=== PATIENT | female | born 1965 | race Hispanic/Latino ===

== ENCOUNTER 2017-01-05 22:12 | Emergency (ER) | payer SELFPAY ==
[2017-01-05 22:52] LABS: Bilirubin Negative (Negative); Blood, Urine Negative (Negative); Glucose, Urine (Dipstick) Negative (Negative); Ketone, Urine Negative (Negative); Nitrite Negative (Negative); Protein, Urine (Dipstick) Negative (Neg-Trace); Urobilinogen 0.2 mg/dL (0.2-1.0)
[2017-01-05 22:56] LABS: Bacteria/HPF None Seen HPF (None Seen); Hyaline Casts/LPF 7-10 HYALINE CAST LPF (0-3 Hyaline); WBC/HPF 0-3 HPF (0-3)
[2017-01-05 23:10] LABS: #Basophils 0.1 thou/uL (0.0-0.2); #Eosinphils 0.3 thou/uL (0.0-0.7); #Monocytes 0.7 thou/uL (0.11-0.59); #Neutrophils 5.1 thou/uL (1.40-6.50); %Basophils 0.7 % (0.0-1.0); %Eosinophils 3.4 % (0.0-10.0); %Lymphocytes 24.7 % (21.0-51.0); %Monocytes 8.7 % (0.0-10.0); Hematocrit 31.1 % (36.0-47.0); Mean Platelet Volume 6.6 fL (7.4-10.4); White Blood Cell (WBC) Count 8.1 thou/uL (4.8-10.8)
[2017-01-05 23:30] LABS: ALT (SGPT) 28 U/L (8-55); AST (SGOT) 23 U/L (5-34); Alkaline Phosphatase 82 U/L (40-150); Anion Gap 11 mmol/L (10-20); BUN (Urea Nitrogen) 13 mg/dL (9.8-20.1); Bilirubin, Total 0.2 mg/dL (0.2-1.2); Calc. Creatinine Clearance 0 mL/min (70-130); Calcium 8.7 mg/dL (7.8-10.44); Carbon Dioxide 23 mmol/L (22-29); Chloride 108 mmol/L (98-107); Estimated GFR-MDRD 89; Globulin 3.2 g/dL (2.4-3.5); Protein, Total 7.1 g/dL (6.0-8.3)
[2017-01-06] MEDS ORDERED: Mag-Al 1200 mg/1200 mg/30 ML UDCUP ONE (01:34)
[2017-01-06] MEDS ORDERED: Lidocaine Viscous Sol 2% 15 ml UD Cup ONE (01:34)
[2017-01-06] MEDS ORDERED: Famotidine/PF 20 mg/2ml Vial ONE (01:36)
--- NOTE | 2017-01-06 08:25 | CT ---
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 Pt states pain is worse with deep breaths. Denies blood in stool. Reports dark stool but pt takes iron pill. Pt report s loose stools and pain with bms. Also reports nausea with pain. Surgical HX cholecystectomy. TECHNIQUE: Axial computed tomography images of the abdomen and pelvis with intravenous contrast. Coronal reformatted images were created and reviewed. CONTRAST: 95 mL of ISOVUE 370 administered intravenously. COMPARISON: No relevant prior studies available. FINDINGS: Lower thorax: Large hiatal hernia. ABDOMEN: Liver: Unremarkable. No mass. Gallbladder and bile ducts: Prior cholecystectomy. No ductal dilation. Pancreas: Unremarkable. No mass. No ductal dilation. Spleen: Unremarkable. No splenomegaly. Adrenals: Unremarkable. No mass. Kidneys and ureters: Unremarkable. No solid mass. No hydronephrosis. Stomach and bowel: Unremarkable. No obstruction. No mucosal thickening. Appendix: Normal appendix. PELVIS: Bladder: Unremarkable. No mass. Reproductive: 18 cm left adnexal mass may be a fibroid arising from the uterus or may be arising fro m the left ovary. 4 cm left ovarian cyst. ABDOMEN and PELVIS: Intraperitoneal space: Unremarkable. No free air. No significant fluid collection. Bones/joints: Suggestion of avascular necrosis of the left femoral head without collapse. No acute f racture. No dislocation. Soft tissues: Left inguinal hernia containing fat only. Vasculature: Unremarkable. No abdominal aortic aneurysm. Lymph nodes: Unremarkable. No enlarged lymph nodes. IMPRESSION: 1. 18 cm left adnexal mass may be a fibroid arising from the uterus or may be arising from the left ovary. Ultrasound may not be helpful due to the size of the lesion. Consider MRI. Recommend gynecolo gy referral. 2. 4 cm left ovarian cyst. 3. Large hiatal hernia. 4. Suggestion of avascular necrosis of the left femoral head without collapse. Thank you for allowing us to participate in the care of your patient. Dictated and Authenticated by: Daryl Hunter MD 01/06/2017 2:40 AM Central Time ([place] \T\ [place]) FINAL REPORT CT ABDOMEN AND PELVIS WITH CONTRAST: Date: 01-06-17 Comparison: 04-21-11 History: Abdominal pain, left upper quadrant pain. FINDINGS: I agree with the preliminary [facility] report. There is a large hiatal hernia, probably increased in size since the prior exam. Imaged lung bases are unremarkable. No free intraperitoneal air. Cholecystectomy clips are present. The liver, spleen, pancreas, and adrenal glands are unremarkable. There is a small new hypodensity emanating from the upper pole of the right kidney measuring approxi mately 6-7 mm, too small to characterize. Kidneys appear otherwise unremarkable. There is a fat containing inguinal hernia on the left. There is a solid heterogeneous mass lesion in the left hemipelvis inseparable from the adjacent uter us/lower uterine segment measuring at least 15-16 cm in greatest dimension, quite enlarged when comp ared to the prior study performed in 2011 where this lesion measured up to approximately 9 cm. There is a tubular low density structure in the right hemipelvis, best seen on axial image 65, simil ar when compared to the prior exam. This may be associated with hydrosalpinx. The appendix is not vi sualized. Vascular structures appear patent. No lymphadenopathy noted. Multilevel lower lumbar spine facet hypertrophic change is present. There is a 3.8 cm low density lesion abutting the large solid mass in the left hemipelvis which may represent a left ovarian cyst. This would also be better assessed via MRI. There is a circumscribed lytic area within the femoral head on the left, unchanged, with sclerotic b orders in a zone of transition measuring 1.9 cm. This could be best assessed via MRI as well. IMPRESSION: 1. Large solid heterogeneous mass in the pelvis, left adnexal region. This has enlarged since the pr ior exam. An enlarging uterine fibroid is suspected. Recommend [employer] consultation and pelvic MRI. 2. 3.8 cm low density lesion in the left hemipelvis may represent a left ovarian cyst. This would al so be better assessed on ultrasound. 3. Hiatal hernia. 4. Possible avascular necrosis within left femoral head. Please see above discussion. 5. 8-9 mm hypodense lesion in upper pole of right kidney, new and too small to characterize. This co uld be better assessed via MRI of abdomen or follow up renal ultrasound. Code T POS: [facility]
[2017-01-06] MEDS ORDERED: ISOVUE-370 76%-LOCM 1 ML ONE (12:59)
== END 2017-01-06 03:34 | disposition home or self-care (01) ==
LOC: ERS 22:12
DX: R19.00 Intra-abdominal and pelvic swelling, mass and lump, unspecified site (principal); Z79.899 Other long term (current) drug therapy
CPT/HCPCS: 36415; 74177; 80053; 81003; 81015; 81025; 83690; 84703; 85025; 96365; S0028

== ENCOUNTER 2017-05-14 14:32 | Outpatient (CLI) | payer SELFPAY ==
--- NOTE | 2017-05-19 09:43 | MMO ---
BILATERAL SCREENING MAMMOGRAMS: Date: 05/14/17 Comparison made to prior exams from 2015 and 2014. This patient's mammogram was interpreted with the assistance of computer-aided detection. FINDINGS: Scattered fibroglandular densities. No mass, distortion, or suspicious calcification identified. No i nterval change identified. Recommend one year follow-up. IMPRESSION: BIRADS 1: Negative POS: [facility]
== END 2017-05-14 14:33 | disposition home or self-care (01) ==
LOC: SCSMAMMO 14:32
PROVIDERS: ATTEND Family Medicine
DX: Z12.31 Encounter for screening mammogram for malignant neoplasm of breast (principal)
CPT/HCPCS: 77067

== ENCOUNTER 2017-08-07 12:27 | Outpatient (CLI) | payer OTHER | END 2017-08-07 12:28 | disposition home or self-care (01) | LOC: BICRAD 12:27 | PROVIDERS: ATTEND Internal Medicine Critical Care Medicine | DX: K44.9 Diaphragmatic hernia without obstruction or gangrene (principal) | CPT/HCPCS: 71046 ==

== ENCOUNTER 2020-11-05 12:07 | Outpatient (CLI) | payer SELFPAY | END 2020-11-05 12:08 | disposition home or self-care (01) | LOC: BICRAD 12:07 | PROVIDERS: ATTEND Family Medicine | DX: M25.561 Pain in right knee (principal); M51.16 Intervertebral disc disorders with radiculopathy, lumbar region; M17.11 Unilateral primary osteoarthritis, right knee; M89.38 Hypertrophy of bone, other site; M25.461 Effusion, right knee | CPT/HCPCS: 72100 ==

== ENCOUNTER 2021-09-25 16:01 | Outpatient (CLI) | payer OTHER, SELFPAY | END 2021-09-25 16:02 | disposition home or self-care (01) | LOC: BICRAD 16:01 | PROVIDERS: ATTEND Family Medicine | DX: R05.9 Cough, unspecified (principal); K44.9 Diaphragmatic hernia without obstruction or gangrene | CPT/HCPCS: 71046 ==

== ENCOUNTER 2021-10-16 11:13 | Outpatient (CLI) | payer OTHER | END 2021-10-16 11:14 | disposition home or self-care (01) | LOC: BICRAD 11:13 | PROVIDERS: ATTEND Family Medicine | DX: R05.9 Cough, unspecified (principal) | CPT/HCPCS: 71046 ==

== ENCOUNTER 2023-05-26 13:16 | Outpatient (CLI) | payer OTHER | END 2023-05-26 13:17 | disposition home or self-care (01) | LOC: BICRAD 13:16 | PROVIDERS: ATTEND Internal Medicine | DX: M25.561 Pain in right knee (principal); M25.562 Pain in left knee; M17.0 Bilateral primary osteoarthritis of knee ==